=== PATIENT | male | born 1965 | race Caucasian/White ===

== ENCOUNTER → 2017-03-02 | Outpatient (CLI) | payer OTHER ==
--- NOTE | 2017-03-03 09:39 | XR ---
EXAMINATION TYPE: XR knee complete RT DATE OF EXAM: 03/02/2017 COMPARISON: NONE HISTORY: Pain TECHNIQUE: Three-view right knee FINDINGS: Joint spaces are preserved. Some minimal spurring from the medial femoral condyle is presen t. No joint effusion is evident. IMPRESSION: 1. Mild degenerative changes medial compartment right knee. 2. No acute osseous abnormality.
== END | disposition home or self-care (01) ==
LOC: RADXRYALE 08:36
PROVIDERS: ATTEND Internal Medicine
DX: M25.861 Other specified joint disorders, right knee (principal)